=== PATIENT | male | born 1975 | race Caucasian/White ===

== ENCOUNTER 2020-02-16 14:44 | Emergency (ER) | payer MEDICAID ==
[~2020-02-16] VITALS: Ht 175.3 cm; Wt 91.2 kg
[2020-02-16 14:54] VITALS: Ht 175.3 cm; Wt 91.2 kg
[2020-02-16 15:21] VITALS: BP 151/85
== END 2020-02-16 15:50 | disposition home or self-care (01) ==
LOC: ED 14:44
DX: H66.91 Otitis media, unspecified, right ear (principal)